=== PATIENT | female | born 1985 | race African-American/Black ===

== ENCOUNTER 2017-10-12 05:40 | Inpatient (IN) | payer MEDICAID ==
[~2017-10-12] VITALS: Ht 157.5 cm; Wt 121.9 kg
[2017-10-12 08:11] LABS: Basophils # (auto) 0 uL; Eosinophils # (auto) 0.1 uL; Hemoglobin 8.1 g/dL (12.2-16.2); Lymphocytes # (auto) 1.2 uL; Mean Corpuscular Hgb Conc. 32.3 g/dL (32.0-36.0); Monocytes # (auto) 0.3 uL; Monocytes % (auto) 5.8 % (0.0-12.0); Neutrophils # (auto) 4.2 uL; White Blood Cell 5.9 10^3/uL (4.4-10.8)
[2017-10-12 08:12] LABS: Basophils % (auto) 0.2 % (0.0-2.0); Eosinophils % (auto) 2.1 % (0.0-7.0); Lymphocytes % (auto) 20.7 % (10.0-50.0); Mean Corpuscular Volume 80.5 fL (80.0-100.0); Neutrophils % (auto) 71.2 % (37.0-80.0); Nucleated Red Blood Cells % 0.3 %; Platelet Count (auto) 183 10^3/uL (140-450); Red Blood Cells 3.11 10^6/uL (4.0-5.20)
[2017-10-12 08:15] LABS: Red Cell Distribution Width 20.4 % (11.8-14.3)
[2017-10-12 08:34] LABS: Albumin 2.6 g/dL (3.4-5.0); BUN/Creatinine Ratio 13.9; Bilirubin, Total 0.3 mg/dL (0.2-1.0); Calcium 8.5 mg/dL (8.5-10.1); Total Protein 7.1 g/dL (6.4-8.2)
[2017-10-12 12:59] LABS: Urine Bacteria NONE SEEN /hpf (None Seen); Urine Blood 2+ /uL (Negative); Urine Specific Gravity 1.016 (1.001-1.035); Urine WBC 10 /hpf (0 - 5)
[2017-10-12] MEDS ORDERED: cefTRIAXone 1GM/10ml IVPUSH 10 ML IV ONE ×2 (13:30→15:30)
[2017-10-12] MEDS ORDERED: IBUPROFEN 400 MG TAB PO ONE (20:15)
[2017-10-12] MEDS ORDERED: HYDROcodone-ACET 5/325MG TAB PO PRN (22:00)
[2017-10-12] MEDS ORDERED: AZITHROMYCIN 500MG/ 250ML 250 ML IV ONE (22:00)
[2017-10-12] MEDS ORDERED: ONDANSETRON HCL 4 MG/2 ML VIAL IV PRN (22:00)
[2017-10-13 06:30] LABS: Basophils # (auto) 0 uL; Basophils % (auto) 0.3 % (0.0-2.0); Eosinophils # (auto) 0.1 uL; Mean Corpuscular Hgb Conc. 31.8 g/dL (32.0-36.0); Monocytes # (auto) 0.3 uL; Neutrophils # (auto) 3.8 uL; Red Blood Cells 3.21 10^6/uL (4.0-5.20); White Blood Cell 5.5 10^3/uL (4.4-10.8)
[2017-10-13 06:37] LABS: Eosinophils % (auto) 2.4 % (0.0-7.0); Hematocrit 26.1 % (36.0-46.0); Hemoglobin 8.3 g/dL (12.2-16.2); Lymphocytes # (auto) 1.2 uL; Lymphocytes % (auto) 22.5 % (10.0-50.0); Mean Corpuscular Hemoglobin 25.9 pg (28.0-32.0); Mean Corpuscular Volume 81.3 fL (80.0-100.0); Monocytes % (auto) 5.7 % (0.0-12.0); Neutrophils % (auto) 69.1 % (37.0-80.0); Nucleated Red Blood Cells % 0.3 %; Platelet Count (auto) 210 10^3/uL (140-450)
[2017-10-13 06:38] LABS: Albumin 2.6 g/dL (3.4-5.0); BUN/Creatinine Ratio 13.7; Calcium 8.3 mg/dL (8.5-10.1); Potassium 3.8 mmol/L (3.5-5.1)
[2017-10-13 06:41] LABS: Bilirubin, Total 0.3 mg/dL (0.2-1.0); Total Protein 7.2 g/dL (6.4-8.2)
[2017-10-13 06:44] LABS: Red Cell Distribution Width 20.3 % (11.8-14.3)
[2017-10-13] MEDS: ACETAMINOPHEN 325 MG TAB PO PRN ×2 (07:45→21:50)
[2017-10-13] MEDS: cefTRIAXone 1GM/10ml IVPUSH 10 ML IV SCH (09:00)
[2017-10-13] MEDS: ENOXAPARIN SOD 40 MG/0.4 ML SYRINGE SC SCH (10:26)
[2017-10-13 17:00] VITALS: BP 143/87
[2017-10-13] MEDS ORDERED: ENOXAPARIN SOD 80 MG/0.8ML SYRINGE SC ONE (17:00)
[2017-10-13] MEDS: AZITHROMYCIN 500MG/ 250ML 250 ML IV SCH (21:30)
[2017-10-13 21:47] VITALS: BP 147/91
[2017-10-14 04:38] VITALS: BP 135/77
[2017-10-14 06:28] LABS: Hemoglobin 8.7 g/dL (12.2-16.2)
[2017-10-14 06:31] LABS: Hematocrit 27.5 % (36.0-46.0)
[2017-10-14 06:36] LABS: Potassium 3.9 mmol/L (3.5-5.1)
[2017-10-14 06:39] LABS: Magnesium 2.4 mg/dL (1.6-2.6)
[2017-10-14 09:00] VITALS: BP 141/91
[2017-10-14] MEDS: ENOXAPARIN SOD 40 MG/0.4 ML SYRINGE SC SCH (09:31)
[2017-10-14] MEDS: ACETAMINOPHEN 325 MG TAB PO PRN ×3 (09:32→21:37)
[2017-10-14] MEDS: cefTRIAXone 1GM/10ml IVPUSH 10 ML IV SCH (09:33)
[2017-10-14 13:00] VITALS: BP 149/84
[2017-10-14 16:50] VITALS: BP 159/95
[2017-10-14] MEDS: AZITHROMYCIN 500MG/ 250ML 250 ML IV SCH (21:38)
[2017-10-14 22:00] VITALS: BP 138/83
[2017-10-15] MEDS: ACETAMINOPHEN 325 MG TAB PO PRN ×2 (00:20→09:37)
[2017-10-15 06:00] VITALS: BP 154/88
[2017-10-15 08:00] VITALS: BP 149/90
[2017-10-15 09:00] VITALS: BP 149/90
[2017-10-15] MEDS: cefTRIAXone 1GM/10ml IVPUSH 10 ML IV SCH (09:38)
[2017-10-15] MEDS: ENOXAPARIN SOD 40 MG/0.4 ML SYRINGE SC SCH (09:38)
[2017-10-15] MEDS ORDERED: FUROSEMIDE 20 MG/2 ML VIAL IV ONE (11:30)
[2017-10-15] MEDS ORDERED: ENOXAPARIN SOD 120 MG/0.8 ML SYRINGE SC ONE (11:30)
[2017-10-15] MEDS ORDERED: IOHEXOL 350 MG/ML 100ML IJ ONE (11:43)
[2017-10-15] MEDS ORDERED: LABETALOL HCL 200 MG TAB PO ONE (11:45)
[2017-10-15] MEDS ORDERED: LABE100T PO (11:56)
[2017-10-15 13:00] VITALS: BP 152/89
[2017-10-15] MEDS ORDERED: AZIT250T8 PO (13:14)
[2017-10-15 15:25] VITALS: BP 152/89
[2017-10-15] MEDS ORDERED: LABETALOL HCL 200 MG TAB PO SCH (22:00)
== END 2017-10-15 17:00 | disposition home or self-care (01) | DRG 561 ==
LOC: ER 05:44 → OVERFLOW 05:45 → WEST WING 10-13 08:04
PROVIDERS: ADMIT Nurse Practitioner; ATTEND Internal Medicine
DX: O90.3 Peripartum cardiomyopathy (principal); I50.33 Acute on chronic diastolic (congestive) heart failure; J18.9 Pneumonia, unspecified organism; I11.0 Hypertensive heart disease with heart failure; E44.0 Moderate protein-calorie malnutrition; N39.0 Urinary tract infection, site not specified; D64.9 Anemia, unspecified; R06.03 Acute respiratory distress
CPT/HCPCS: 36415; 36600; 71046; 71275; 80053; 81001; 82805; 83605; 83735; 83880; 84132; 84443; 84484; 85014; 85018; 85025; 85379; 87040; 87081; 87086; 93005; 93306; 93970; 96365; 96375